=== PATIENT | female | born 1950 | race Caucasian/White ===

== ENCOUNTER → 2017-07-22 | Outpatient (CLI) | payer OTHER ==
[~2017-07-22] MED LIST: BIAXIN500 MG PO; CLARITIN10 MG PO; NEXIUM20 MG PO
== END | disposition home or self-care (01) ==
LOC: US 10:10
DX: I65.23 Occlusion and stenosis of bilateral carotid arteries (principal)

== ENCOUNTER → 2018-01-08 | Outpatient (CLI) | payer OTHER | END | disposition home or self-care (01) | LOC: MAMMO 13:51 | DX: Z12.31 Encounter for screening mammogram for malignant neoplasm of breast (principal) ==

== ENCOUNTER → 2020-07-25 | Outpatient (CLI) | payer OTHER | END | disposition home or self-care (01) | LOC: MAMMO 01:02 | PROVIDERS: ATTEND Family Medicine | DX: Z12.31 Encounter for screening mammogram for malignant neoplasm of breast (principal) ==

== ENCOUNTER → 2020-10-05 | Outpatient (CLI) | payer OTHER ==
[~2020-10-05] MED LIST changes: +NP THYROID60 MG PO; +XANAX0.25 MG PO
== END | disposition home or self-care (01) ==
LOC: MRI 00:20
PROVIDERS: ATTEND Family Medicine
DX: S83.242A Other tear of medial meniscus, current injury, left knee, initial encounter (principal); S83.512A Sprain of anterior cruciate ligament of left knee, initial encounter; S83.412A Sprain of medial collateral ligament of left knee, initial encounter; M17.12 Unilateral primary osteoarthritis, left knee; M22.42 Chondromalacia patellae, left knee; M23.8X2 Other internal derangements of left knee; M76.9 Unspecified enthesopathy, lower limb, excluding foot; M70.52 Other bursitis of knee, left knee; M25.462 Effusion, left knee; M25.762 Osteophyte, left knee; X58.XXXA Exposure to other specified factors, initial encounter; Y93.89 Activity, other specified; Y92.89 Other specified places as the place of occurrence of the external cause; Y99.8 Other external cause status

== ENCOUNTER → 2020-12-29 | Outpatient (CLI) | payer OTHER ==
[2020-12-29 18:12] LABS: BASO # 0.1 10*3/uL (0.0-0.1); BASO % 0.6 % (0.0-1.0); EOS % 0.3 % (1.0-4.0); HEMATOCRIT 41.1 % (37.0-47.0); LYMPH # 2.6 10*3/uL (1.3-4.4); LYMPH % 28.7 % (27.0-41.0); MEAN CELL VOLUME 96.5 fl (81.0-99.0); MEAN CORPUSCULAR HGB 30.5 pg (27.0-31.0); MEAN CORPUSCULAR HGB CONC 31.6 g/dl (33.0-37.0); MEAN PLATELET VOLUME 10.9 fl (9.6-12.3); MONO # 0.6 10*3/uL (0.1-1.0); MONO % 6.7 % (3.0-9.0); NEUT # 5.7 10*3/uL (2.3-7.9); NEUT % 63.4 % (47.0-73.0); PLATELET COUNT AUTOMATED 322 10*3/uL (130-400); RED BLOOD COUNT 4.26 10*6/uL (4.10-5.10); RED CELL DISTRI WIDTH 12.5 % (0-14.5)
[2020-12-29 18:41] LABS: BUN 11 mg/dl (7-24); CHLORIDE 106 mmol/L (98-107); CREATININE 0.76 mg/dL (0.55-1.02); POTASSIUM 3.7 mmol/L (3.5-5.1); SODIUM 140 mmol/L (136-145)
== END | disposition home or self-care (01) ==
LOC: LAB 14:04
PROVIDERS: ATTEND Orthopaedic Surgery
DX: M17.12 Unilateral primary osteoarthritis, left knee (principal); D68.8 Other specified coagulation defects

== ENCOUNTER → 2021-03-06 | Outpatient (CLI) | payer OTHER | END | disposition home or self-care (01) | LOC: CARD 00:51 | PROVIDERS: ATTEND Internal Medicine Cardiovascular Disease | DX: Z01.810 Encounter for preprocedural cardiovascular examination (principal); I25.10 Atherosclerotic heart disease of native coronary artery without angina pectoris ==

== ENCOUNTER → 2021-04-14 | Outpatient (CLI) | payer OTHER ==
[~2021-04-14] MED LIST changes: +ASPIRIN ADULT L81 M2 PO; +DOK COLACE100 MG PO; +HYDROCODONE-AC1 EAC1 PO
[2021-04-14 13:03] LABS: BASO % 0.4 % (0.0-1.0); EOS # 0.1 10*3/uL (0.0-0.4); EOS % 0.7 % (1.0-4.0); HEMATOCRIT 39.9 % (37.0-47.0); LYMPH # 2.6 10*3/uL (1.3-4.4); MEAN CELL VOLUME 96.1 fl (81.0-99.0); MEAN CORPUSCULAR HGB 31.1 pg (27.0-31.0); MEAN CORPUSCULAR HGB CONC 32.3 g/dl (33.0-37.0); MEAN PLATELET VOLUME 10.5 fl (9.6-12.3); MONO # 0.5 10*3/uL (0.1-1.0); MONO % 7.6 % (3.0-9.0); NEUT # 3.6 10*3/uL (2.3-7.9); PLATELET COUNT AUTOMATED 275 10*3/uL (130-400); RED BLOOD COUNT 4.15 10*6/uL (4.10-5.10); RED CELL DISTRI WIDTH 12.5 % (0-14.5); WHITE BLOOD COUNT 6.8 10*3/uL (4.8-10.8)
[2021-04-14 13:03] LABS: BILIRUBIN Negative (Negative); BLOOD Negative (Negative); CLARITY Clear (Clear); COLOR Yellow (Yellow); GLUCOSE Negative (Negative); KETONE Negative (Negative); LEUKO ESTERASE Negative (Negative); NITRITE Negative (Negative); SPECIFIC GRAVITY <= 1.005 (1.001-1.030); UROBILINOGEN 0.2 E.U./dl (0.0-1.0)
[2021-04-14 13:29] LABS: BUN 14 mg/dl (7-24); CHLORIDE 109 mmol/L (98-107); CREATININE 0.76 mg/dL (0.55-1.02); POTASSIUM 3.7 mmol/L (3.5-5.1); SODIUM 135 mmol/L (136-145)
[2021-04-14 13:39] LABS: EPITHELIAL CELLS 0-2; RBC 0-2 rbc/hpf (0-2)
== END | disposition home or self-care (01) ==
LOC: LAB 11:39
PROVIDERS: ATTEND Orthopaedic Surgery
DX: Z01.812 Encounter for preprocedural laboratory examination (principal); Z20.822 Contact with and (suspected) exposure to COVID-19; Z96.652 Presence of left artificial knee joint

== ENCOUNTER 2021-04-18 01:35 | Inpatient (IN) | payer OTHER ==
[~2021-04-18] VITALS: Ht 149.8 cm; Wt 70.8 kg
[2021-04-18] VITALS (9 sets, daily range): BP systolic 118–187; BP diastolic 58–86
[~2021-04-18 01:35] MED LIST changes: -ASPIRIN ADULT L81 M2 PO; -DOK COLACE100 MG PO; -HYDROCODONE-AC1 EAC1 PO
[2021-04-19] VITALS: BP 158/71
[2021-04-19 06:31] LABS: HEMATOCRIT 35.9 % (37.0-47.0); MEAN CORPUSCULAR HGB 30.6 pg (27.0-31.0); MEAN CORPUSCULAR HGB CONC 32.6 g/dl (33.0-37.0); MEAN PLATELET VOLUME 10.8 fl (9.6-12.3); PLATELET COUNT AUTOMATED 310 10*3/uL (130-400); RED BLOOD COUNT 3.82 10*6/uL (4.10-5.10); RED CELL DISTRI WIDTH 13.1 % (0-14.5); WHITE BLOOD COUNT 16.3 10*3/uL (4.8-10.8)
[2021-04-19 06:38] LABS: ALBUMIN 3.5 gm/dl (3.1-4.5); BUN 11 mg/dl (7-24); CHLORIDE 103 mmol/L (98-107); CHOLESTEROL 213 mg/dL (<200); CREATININE 0.72 mg/dL (0.55-1.02); POTASSIUM 3.7 mmol/L (3.5-5.1); SGOT/AST 14 IU/L (3-35); SGPT/ALT 20 U/L (12-78); SODIUM 133 mmol/L (136-145); TOTAL PROTEIN 6.6 gm/dL (6.4-8.2); TRIGLYCERIDES 63 mg/dl (<150)
[2021-04-19 06:42] LABS: ACT PARTIAL THROMBO TIME 27.9 SECONDS (20.0-32.1)
[2021-04-19 07:18] LABS: PLATELET SUFFICIENCY NORMAL (NORMAL); TOTAL CELLS COUNTED 100 #CELLS
[2021-04-19 07:32] LABS: ALKALINE PHOSPHATASE 76 U/L (45-117); FREE T4 0.99 ng/dl (0.76-1.46); LDL CHOLESTEROL 133 mg/dL (9-159); THYROID STIM HORMONE (HS) 0.752 uIU/ml (0.358-4.75)
[2021-04-19 08:00] VITALS: BP 154/77
[2021-04-19 09:50] LABS: VITAMIN D, 25-HYDROXY 49.9 ng/mL (30-100)
[2021-04-19 12:00] VITALS: BP 181/58
[2021-04-19 16:00] VITALS: BP 173/66
[2021-04-19 20:00] VITALS: BP 165/68
[2021-04-20] VITALS: BP 148/66
[2021-04-20 06:00] LABS: BASO % 0.2 % (0.0-1.0); HEMATOCRIT 34.2 % (37.0-47.0); LYMPH # 2.7 10*3/uL (1.3-4.4); LYMPH % 22.1 % (27.0-41.0); MEAN CELL VOLUME 92.9 fl (81.0-99.0); MEAN CORPUSCULAR HGB 31.3 pg (27.0-31.0); MEAN CORPUSCULAR HGB CONC 33.6 g/dl (33.0-37.0); MEAN PLATELET VOLUME 10.7 fl (9.6-12.3); MONO # 1.3 10*3/uL (0.1-1.0); MONO % 10.4 % (3.0-9.0); NEUT # 8.2 10*3/uL (2.3-7.9); NEUT % 66.8 % (47.0-73.0); PLATELET COUNT AUTOMATED 276 10*3/uL (130-400); RED BLOOD COUNT 3.68 10*6/uL (4.10-5.10); RED CELL DISTRI WIDTH 12.9 % (0-14.5); WHITE BLOOD COUNT 12.2 10*3/uL (4.8-10.8)
[2021-04-20 08:00] VITALS: BP 137/73
[2021-04-20] MEDS ORDERED: DOK COLACE100 MG PO (10:53)
[2021-04-20] MEDS ORDERED: ASPIRIN ADULT L81 M2 PO (10:53)
[2021-04-20] MEDS ORDERED: HYDROCODONE-AC1 EAC1 PO (10:53)
[2021-04-20 12:00] VITALS: BP 145/59
== END 2021-04-20 12:33 | disposition home health service (06) | DRG 470 ==
LOC: SDC 01:35 → 5E 09:36 → SDC 13:15 → 5E 04-20 12:33
PROVIDERS: Orthopaedic Surgery; Student in an Organized Health Care Education/Training Program; ADMIT Family Medicine; ATTEND Family Medicine
PROC: 0SRD0J9 Replacement of Left Knee Joint with Synthetic Substitute, Cemented, Open Approach (ICD-10-PCS; principal; 2021-04-18)
DX: M17.12 Unilateral primary osteoarthritis, left knee (principal); E87.1 Hypo-osmolality and hyponatremia; I25.10 Atherosclerotic heart disease of native coronary artery without angina pectoris; E03.9 Hypothyroidism, unspecified; K21.9 Gastro-esophageal reflux disease without esophagitis; F41.9 Anxiety disorder, unspecified; E87.8 Other disorders of electrolyte and fluid balance, not elsewhere classified; Z87.891 Personal history of nicotine dependence; Z88.0 Allergy status to penicillin; Z95.5 Presence of coronary angioplasty implant and graft; Z98.51 Tubal ligation status; Z78.9 Other specified health status; Z79.899 Other long term (current) drug therapy

== ENCOUNTER → 2021-05-03 | Outpatient (CLI) | payer OTHER ==
[~2021-05-03] MED LIST changes: +ASPIRIN ADULT L81 M2 PO; +DOK COLACE100 MG PO; +HYDROCODONE-AC1 EAC1 PO
== END | disposition home or self-care (01) ==
LOC: ORTHO 12:25
PROVIDERS: ATTEND Orthopaedic Surgery
DX: Z47.1 Aftercare following joint replacement surgery (principal); M17.12 Unilateral primary osteoarthritis, left knee; Z96.652 Presence of left artificial knee joint

== ENCOUNTER → 2021-06-02 | Outpatient (CLI) | payer OTHER | END | disposition home or self-care (01) | LOC: ORTHO 12:36 | PROVIDERS: ATTEND Orthopaedic Surgery | DX: Z47.1 Aftercare following joint replacement surgery (principal); Z96.652 Presence of left artificial knee joint ==

== ENCOUNTER → 2021-07-12 | Outpatient (CLI) | payer OTHER | LOC: ORTHO 01:03 | PROVIDERS: ATTEND Orthopaedic Surgery | DX: M17.12 Unilateral primary osteoarthritis, left knee (principal); Z47.1 Aftercare following joint replacement surgery ==

== ENCOUNTER → 2021-10-13 | Outpatient (CLI) | payer OTHER | END | disposition home or self-care (01) | LOC: ORTHO 01:51 | PROVIDERS: ATTEND Orthopaedic Surgery | DX: Z47.1 Aftercare following joint replacement surgery (principal) ==

== ENCOUNTER → 2022-04-11 | Outpatient (CLI) | payer OTHER | END | disposition home or self-care (01) | LOC: ORTHO 01:44 | PROVIDERS: ATTEND Orthopaedic Surgery | DX: M76.892 Other specified enthesopathies of left lower limb, excluding foot (principal) ==

== ENCOUNTER → 2023-04-08 | Outpatient (CLI) | payer OTHER | END | disposition home or self-care (01) | LOC: MAMMO 01:21 | PROVIDERS: ATTEND Family Medicine | DX: Z12.31 Encounter for screening mammogram for malignant neoplasm of breast (principal); N64.9 Disorder of breast, unspecified ==

== ENCOUNTER → 2023-04-10 | Outpatient (CLI) | payer OTHER | END | disposition home or self-care (01) | LOC: ORTHO 02:15 | PROVIDERS: ATTEND Orthopaedic Surgery | DX: Z96.652 Presence of left artificial knee joint (principal) ==

== ENCOUNTER → 2023-05-22 | Outpatient (CLI) | payer OTHER | END | disposition home or self-care (01) | LOC: ORTHO 01:14 | PROVIDERS: ATTEND Orthopaedic Surgery | DX: M17.11 Unilateral primary osteoarthritis, right knee (principal); M16.0 Bilateral primary osteoarthritis of hip; M81.0 Age-related osteoporosis without current pathological fracture; R10.2 Pelvic and perineal pain ==

== ENCOUNTER → 2023-10-30 | Day surgery (SDC) | payer OTHER ==
[~2023-10-30] VITALS: Ht 149.8 cm; Wt 68.0 kg
[~2023-10-30] MED LIST changes: +Balanced Salt Solution 500 ML OPH SCH; +Midazolam Hydrochloride 5 MG/ML VIAL IV ONE; +OFLOXACIN 0.3% 5 ML BOTTLE ONE; +OFLOXACIN 0.3% 5 ML BOTTLE OPH SCH; +PHENYLEPHRINE/KETOROLAC 4 ML in Balanced Salt Solution 500 ML OPH SCH; +POVIDONE IODINE 5% OPHTHALMIC 30 ML BOTTLE OPH ONE; +POVIDONE IODINE 5% OPHTHALMIC 30 ML BOTTLE OPH SCH; +Phenylephrine Hydrochloride 2 ML BOT OPH ONE; +Phenylephrine Hydrochloride 2 ML BOT OPH SCH; +Proparacaine Hydrochloride 15 ML BOT OPH ONE; +Proparacaine Hydrochloride 15 ML BOT OPH SCH; +SODIUM CHLORIDE 0.9% 1,000 ML IV SCH; +SODIUM CHLORIDE 0.9% 10 ML VIAL IV ONE; +TROPICAMIDE 15 ML BOT OPH ONE; +TROPICAMIDE 15 ML BOT OPH SCH; +Tetracaine Hydrochloride 0.5% 4 ML BOT OPH ONE; +Tetracaine Hydrochloride 0.5% 4 ML BOT OPH SCH; +prednisoLONE acetate 1% OPHTHALMIC 5 ML BOT OPH ONE; +prednisoLONE acetate 1% OPHTHALMIC 5 ML BOT OPH SCH
[2023-10-30 13:02] VITALS: BP 173/78
[2023-10-30 13:55] VITALS: BP 186/73
[2023-10-30 14:10] VITALS: BP 171/82
[2023-10-30 14:21] VITALS: BP 160/84
== END | disposition home or self-care (01) ==
LOC: SDC 10-25 14:45
PROVIDERS: ATTEND Ophthalmology
DX: H25.811 Combined forms of age-related cataract, right eye (principal); I25.10 Atherosclerotic heart disease of native coronary artery without angina pectoris; H25.11 Age-related nuclear cataract, right eye; F41.9 Anxiety disorder, unspecified; K21.9 Gastro-esophageal reflux disease without esophagitis; Z88.0 Allergy status to penicillin; Z88.8 Allergy status to other drugs, medicaments and biological substances; Z79.899 Other long term (current) drug therapy; Z98.890 Other specified postprocedural states

== ENCOUNTER → 2024-06-29 | Outpatient (CLI) | payer OTHER ==
[~2024-06-29] MED LIST changes: -Balanced Salt Solution 500 ML OPH SCH; -Midazolam Hydrochloride 5 MG/ML VIAL IV ONE; -OFLOXACIN 0.3% 5 ML BOTTLE ONE; -OFLOXACIN 0.3% 5 ML BOTTLE OPH SCH; -PHENYLEPHRINE/KETOROLAC 4 ML in Balanced Salt Solution 500 ML OPH SCH; -POVIDONE IODINE 5% OPHTHALMIC 30 ML BOTTLE OPH ONE; -POVIDONE IODINE 5% OPHTHALMIC 30 ML BOTTLE OPH SCH; -Phenylephrine Hydrochloride 2 ML BOT OPH ONE; -Phenylephrine Hydrochloride 2 ML BOT OPH SCH; -Proparacaine Hydrochloride 15 ML BOT OPH ONE; -Proparacaine Hydrochloride 15 ML BOT OPH SCH; -SODIUM CHLORIDE 0.9% 1,000 ML IV SCH; -SODIUM CHLORIDE 0.9% 10 ML VIAL IV ONE; -TROPICAMIDE 15 ML BOT OPH ONE; -TROPICAMIDE 15 ML BOT OPH SCH; -Tetracaine Hydrochloride 0.5% 4 ML BOT OPH ONE; -Tetracaine Hydrochloride 0.5% 4 ML BOT OPH SCH; -prednisoLONE acetate 1% OPHTHALMIC 5 ML BOT OPH ONE; -prednisoLONE acetate 1% OPHTHALMIC 5 ML BOT OPH SCH
== END | disposition home or self-care (01) ==
LOC: RAD 14:31
PROVIDERS: ATTEND Orthopaedic Surgery
DX: M25.531 Pain in right wrist (principal); M25.532 Pain in left wrist; M79.641 Pain in right hand; M79.642 Pain in left hand